=== PATIENT | male | born 1980 | race Caucasian/White ===

== ENCOUNTER 2022-11-15 09:40 | Day surgery (SDC) | payer OTHER ==
[~2022-11-15] VITALS: Ht 185.4 cm; Wt 90.9 kg
[~2022-11-15 09:40] MED LIST: AMLO-258 PO; ASPI-1450 PO; BACL10TA PO; DIVA-112 PO; DIVA125T32 PO; METO25 PO; SERT-158 PO; SODIUM CHLORIDE 0.9% 0 ML ONE; SODIUM CHLORIDE 0.9% 1,000 ML IV ONE
[2022-11-15] MEDS ORDERED: LIDOCAINE/PF 2% 5 ML VIAL IM ONE (09:41)
[2022-11-15] MEDS ORDERED: PROPOFOL 1% 20 ML VIAL IVP ONE (09:41)
[2022-11-15] MEDS ORDERED: SODIUM CHLORIDE 0.9% 1,000 ML ONE (10:28)
[2022-11-15] MEDS ORDERED: OXYGEN THERAPY IH SCH (11:30)
== END 2022-11-15 13:25 | disposition home or self-care (01) ==
LOC: SURGERY 09:40
PROVIDERS: ATTEND Specialist
DX: R13.10 Dysphagia, unspecified (principal); I10 Essential (primary) hypertension; Z86.73 Personal history of transient ischemic attack (TIA), and cerebral infarction without residual deficits; Z98.890 Other specified postprocedural states; Z82.49 Family history of ischemic heart disease and other diseases of the circulatory system; Z79.899 Other long term (current) drug therapy
CPT/HCPCS: 43246; J2704; J3490; J7030